=== PATIENT | male | born 1975 | race Caucasian/White ===

== ENCOUNTER 2022-06-05 09:34 | Emergency (ER) | payer MEDICAID, OTHER ==
[~2022-06-05] VITALS: Ht 167.6 cm; Wt 77.0 kg
[2022-06-05 09:44] VITALS: BP 170/103
[2022-06-05] MEDS ORDERED: LIDOCAINE HCL/PF 1% 10 MG/ML 5ML VIAL INFIL ONE (11:00)
[2022-06-05] MEDS ORDERED: BACITRACIN ZINC OINT UDPKT TOP ONE (11:00)
[2022-06-05] MEDS ORDERED: TETANUS, DIPHTHERIA, PERTUSSIS VAC/PF 0.5ML (>10YR OLD) IM ONE ×2 (11:00→13:45)
[2022-06-05] MEDS ORDERED: BACITRACIN ZINC OINT UDPKT TOP SCH (13:45)
[2022-06-05] MEDS ORDERED: LIDOCAINE HCL/PF 1% 10 MG/ML 5ML VIAL INFIL SCH (13:45)
== END 2022-06-05 14:12 | disposition home or self-care (01) ==
LOC: ER 09:34
DX: F10.10 Alcohol abuse, uncomplicated (principal); S01.01XA Laceration without foreign body of scalp, initial encounter; W10.9XXA Fall (on) (from) unspecified stairs and steps, initial encounter; Y93.89 Activity, other specified; Y92.89 Other specified places as the place of occurrence of the external cause; Y99.8 Other external cause status; Y90.9 Presence of alcohol in blood, level not specified
CPT/HCPCS: 12002; 70450; 72125; 90471; 90715; 99284; J3490

== ENCOUNTER 2022-06-07 06:39 | Emergency (ER) | payer MEDICAID ==
[~2022-06-07] VITALS: Ht 167.6 cm; Wt 82.0 kg
[2022-06-07 06:59] VITALS: BP 153/115
== END 2022-06-07 08:16 | disposition home or self-care (01) ==
LOC: ER 06:39
DX: S01.01XD Laceration without foreign body of scalp, subsequent encounter (principal); X58.XXXD Exposure to other specified factors, subsequent encounter
CPT/HCPCS: 99281

== ENCOUNTER 2022-06-14 05:30 | Emergency (ER) | payer MEDICAID ==
[~2022-06-14] VITALS: Ht 162.6 cm; Wt 120.0 kg
[2022-06-14 05:58] VITALS: BP 148/96
== END 2022-06-14 10:28 | disposition left against medical advice (07) ==
LOC: ER 07:14
DX: Z53.21 Procedure and treatment not carried out due to patient leaving prior to being seen by health care provider (principal)

== ENCOUNTER 2022-06-15 18:52 | Emergency (ER) | payer MEDICAID ==
[~2022-06-15] VITALS: Ht 160 cm; Wt 91.0 kg
[2022-06-15 18:53] VITALS: BP 157/104
== END 2022-06-16 01:00 | disposition home or self-care (01) ==
LOC: ER 18:52
DX: S01.01XD Laceration without foreign body of scalp, subsequent encounter (principal); X58.XXXD Exposure to other specified factors, subsequent encounter
CPT/HCPCS: 93005; 99283

== ENCOUNTER 2022-12-04 23:39 | Emergency (ER) | payer MEDICAID ==
[~2022-12-04] VITALS: Ht 167.6 cm; Wt 94.0 kg
[2022-12-05 00:26] VITALS: BP 159/99
[2022-12-05] MEDS ORDERED: IBUPROFEN 600MG TABLET PO ONE (02:15)
[2022-12-05] MEDS ORDERED: CHLORHEXIDINE GLUCONATE 0.12% MOUTHWASH UDC SSP SCH (02:15)
[2022-12-05] MEDS ORDERED: CHLO473M2 MT (02:26)
== END 2022-12-05 02:56 | disposition home or self-care (01) ==
LOC: ER 23:39
DX: S01.512A Laceration without foreign body of oral cavity, initial encounter (principal); W22.8XXA Striking against or struck by other objects, initial encounter; Y93.89 Activity, other specified; Y92.9 Unspecified place or not applicable
CPT/HCPCS: 12011; 99282; Z7610